=== PATIENT | female | born 1990 | race Caucasian/White ===

== ENCOUNTER 2019-02-10 12:35 | Outpatient (RCR) | payer MEDICAID ==
[2019-02-08 13:30] VITALS: BP 110/69
[~2019-02-10] VITALS: Ht 165 cm; Wt 72.7 kg
[~2019-02-10 12:35] MED LIST: IRON SUCROSE 200 MG/10 ML (VENOFER) VIAL IV ONE; IRON SUCROSE 200 MG/10 ML (VENOFER) VIAL IV SCH; PREN1TAB39 PO
[2019-02-10 13:57] VITALS: BP 108/71
== END 2019-02-10 13:35 | disposition home or self-care (01) ==
LOC: SDC 12:35
PROVIDERS: ATTEND Family Medicine
DX: D50.9 Iron deficiency anemia, unspecified (principal)
CPT/HCPCS: 96365

== ENCOUNTER 2019-02-21 11:06 | Outpatient (RCR) | payer MEDICAID ==
[2019-02-17] MEDS: IRON SUCROSE 200 MG/10 ML (VENOFER) VIAL IV SCH (13:00)
[2019-02-17 13:03] VITALS: BP 109/65
[~2019-02-21] VITALS: Ht 170.1 cm; Wt 72.7 kg
[~2019-02-21 11:06] MED LIST changes: -IRON SUCROSE 200 MG/10 ML (VENOFER) VIAL IV ONE; -IRON SUCROSE 200 MG/10 ML (VENOFER) VIAL IV SCH
[2019-02-21] MEDS: IRON SUCROSE 200 MG/10 ML (VENOFER) VIAL IV SCH (11:12)
[2019-02-21 11:45] VITALS: BP 108/66
== END 2019-02-21 11:45 | disposition home or self-care (01) ==
LOC: SDC 11:06
PROVIDERS: ATTEND Family Medicine
DX: D50.9 Iron deficiency anemia, unspecified (principal)
CPT/HCPCS: 96365

== ENCOUNTER 2019-03-04 22:15 | Outpatient (CLI) | payer MEDICAID ==
[~2019-03-04] VITALS: Ht 165.1 cm; Wt 76.9 kg
--- NOTE | 2019-03-04 22:22 | NUR ---
MARTY BANUELOS presented to unit via ambulatory from ED, accompanied by family, with c/o CONTRACTIONS. MARTY BANUELOS weighed, gowned, voided, and to bed. EFHM and TOCO applied, VS taken. MARTY BANUELOS oriented to bed controls, call light, TV, heat, and A/C controls.
[2019-03-04 22:30] VITALS: BP 120/66
[2019-03-04 23:05] VITALS: BP 106/59
--- NOTE | 2019-03-04 23:14 | NUR ---
Patient ambulating off of unit to private vehicle at this time.
--- NOTE | 2019-03-07 09:34 | Physician Query-Final Dx ---
Clinic Account Progress/Dx Physician Query: Please give diagnosis Please include # weeks gestation Date of Service Mar 04, 2019 at 22:15 RADHA PRITCHARD Mar 07, 2019 09:34
== END 2019-03-04 23:16 | disposition home or self-care (01) ==
LOC: WSo 22:15 → LDRP 22:15 → WSo 23:16
PROVIDERS: ATTEND Family Medicine
DX: O62.9 Abnormality of forces of labor, unspecified (principal); Z3A.37 37 weeks gestation of pregnancy
CPT/HCPCS: 99213

== ENCOUNTER 2019-03-17 19:04 | Inpatient (IN) | payer MEDICAID ==
[~2019-03-17] VITALS: Ht 167.7 cm; Wt 77.0 kg
--- NOTE | 2019-03-17 18:58 | NUR ---
MARTY BANUELOS presented to unit via ambulatory from home, accompanied by gracy, for INDUCTION. MARTY BANUELOS weighed, gowned, voided, and to bed. EFHM and TOCO applied, VS taken. MARTY BANUELOS oriented to bed controls, call light, TV, heat, and A/C controls.
[2019-03-17] MEDS ORDERED: D5 LR IV SOLUTION 1,000 ML IV SCH (19:10)
[2019-03-17] MEDS ORDERED: LACTATED RINGERS 1,000 ML IV SCH (19:10)
[2019-03-17] MEDS ORDERED: MINERAL OIL CONCENTRATE 99.9% 15 ML UDC TOP PRN (19:15)
[2019-03-17] MEDS ORDERED: MISOPROSTOL 100 MCG (CYTOTEC) TAB PO ONE (19:15)
[2019-03-17] MEDS ORDERED: TERBUTALINE INJ 1 MG/ML (BRETHINE) AMP SC PRN (19:15)
[2019-03-17 19:20] VITALS: BP 116/66
[2019-03-17 20:00] LABS: BASOPHILS % (AUTO) 0 % (0-10); EOSINOPHILS # (AUTO) 0.1 10^3/uL (0.0-0.3); EOSINOPHILS % (AUTO) 1 % (0-10); HEMATOCRIT 33 % (35-52); HEMOGLOBIN 10.6 G/DL (11.5-16.0); LYMPHOCYTES # (AUTO) 1.6 X 10^3 (1.0-4.0); LYMPHOCYTES % (AUTO) 18 % (12-44); MEAN CORPUSCULAR HEMOGLOBIN 30 PG (25-34); MEAN CORPUSCULAR HGB CONC 32 G/DL (32-36); MEAN CORPUSCULAR VOLUME 93 FL (80-99); MEAN PLATELET VOLUME 9.9 FL (7.4-10.4); MONOCYTES # (AUTO) 0.6 X 10^3 (0.0-1.0); MONOCYTES % (AUTO) 7 % (0-12); NEUTROPHILS # (AUTO) 6.6 X 10^3 (1.8-7.8); NEUTROPHILS % (AUTO) 75 % (42-75); PLATELET COUNT 235 10^3/uL (130-400); RED CELL DISTRIBUTION WIDTH 18.3 % (10.0-14.5); WHITE BLOOD COUNT 8.8 10^3/uL (4.3-11.0)
[2019-03-17] MEDS ORDERED: ZOLPIDEM 5 MG (AMBIEN) TAB PO PRN (20:30)
[2019-03-17] MEDS ORDERED: FERR159T2 PO (20:41)
[2019-03-17 22:00] VITALS: BP 110/58
[2019-03-17] MEDS ORDERED: CATHETER FLUSH 10 ML SYR IV SCH (22:00)
[2019-03-17 23:00] VITALS: BP 103/56
[2019-03-17] MEDS ORDERED: MISOPROSTOL 100 MCG (CYTOTEC) TAB PO SCH (23:15)
[2019-03-18] VITALS (52 sets, daily range): BP systolic 94–124; BP diastolic 50–94
--- NOTE | 2019-03-18 01:33 | NUR ---
This RN called Dr Carrizales to notify of patient contraction pattern, time of next cytotec dose due, latest SVE. New orders received.
[2019-03-18] MEDS ORDERED: BUTORPHANOL INJ 2 MG/ML (STADOL) VIAL IV ONE (02:45)
[2019-03-18] MEDS ORDERED: SUFENTA 0.6MCG/ML BUPIVA 0.125 100 ML ONE (03:19)
--- NOTE | 2019-03-18 03:50 | NUR ---
This RN called Abimbola Tariq CRNA to notify of patient request for epidural.
[2019-03-18] MEDS ORDERED: BUPIVACAINE 0.25% 30 ML (SENSORCAINE) VIAL ONE (04:03)
[2019-03-18] MEDS ORDERED: fentaNYL INJECTION 100 MCG/2 ML AMP ONE (04:03)
[2019-03-18] MEDS ORDERED: LACTATED RINGERS 1,000 ML IV ONE (04:42)
[2019-03-18] MEDS ORDERED: NALOXONE 0.4 MG/ML 1 ML (NARCAN) VIAL IV PRN (04:45)
[2019-03-18] MEDS ORDERED: EPIDURAL (SUFENTA 0.6MCG/ML BUPIVA 0.125%) 100 ML BAG EPI SCH (04:45)
[2019-03-18] MEDS ORDERED: CATHETER FLUSH 10 ML SYR IV PRN (04:45)
[2019-03-18] MEDS ORDERED: OXYTOCIN PRE-MIX DRIP 500 ML IV SCH ×2 (09:06→11:01)
--- NOTE | 2019-03-18 09:33 | Labor Progress Note ---
Labor Progress Note Labor Progress Note Date Seen by Provider: Mar 18, 2019 Time Seen by Provider: 09:15 Subjective: Pt denies complaints. Objective: Cervical exam: /-3 Consistency: Soft Position: Anterior Presentation: Vertex heart tones: 120 beats per minute, moderate variability, no decels Tocometer: 3 ctx/10 minutes Assessment/Plan: Kelton Gregg is a 28 /Para 2/1 ,Gestational Age 39w6d here for IOL. CEFM/TOCO AROM done with clear fluid and bloody show, start pitocin Anesthesia: Epidural Anticipate vaginal delivery. Vitals - Labs Vital Signs - I&O Vital Signs Date Time Temp Pulse Resp B/P (MAP) Pulse Ox O2 Delivery O2 Flow Rate FiO2 03/18/19 07:45 70 18 104/62 (76) 97 Room Air 03/18/19 07:30 68 18 103/60 (74) 98 Room Air 03/18/19 07:15 36.6 68 18 106/57 (73) 98 Room Air 03/18/19 07:00 97 18 99/54 (69) 96 Room Air 03/18/19 06:45 95 18 99/54 (69) 96 Room Air 03/18/19 06:30 65 18 102/56 (71) 97 Room Air 03/18/19 06:15 64 18 105/59 (74) 97 Room Air 03/18/19 06:00 63 18 95/51 (66) 96 Room Air 03/18/19 05:45 98 18 99/57 (71) 96 Room Air 03/18/19 05:30 66 18 95 Room Air 03/18/19 05:25 65 18 105/57 (73) 97 Room Air 03/18/19 05:20 67 18 104/58 (73) 97 Room Air 03/18/19 05:15 65 18 105/56 (72) 96 Room Air 03/18/19 05:10 67 18 106/51 (69) 96 Room Air 03/18/19 05:00 70 18 108/67 (81) 98 Room Air 03/18/19 04:55 67 18 113/66 (82) 98 Room Air 03/18/19 04:50 74 18 110/68 (82) 98 Room Air 03/18/19 04:45 96 18 114/64 (81) 97 Room Air 03/18/19 04:42 73 18 114/57 (76) Room Air 03/18/19 04:39 92 18 112/58 (76) 98 Room Air 03/18/19 04:33 36.4 78 18 113/58 (76) 97 Room Air 03/18/19 04:30 69 18 113/69 (84) 99 Room Air 03/18/19 04:23 83 18 112/76 (88) 100 Room Air 03/18/19 04:19 82 18 119/80 (93) 100 Room Air 03/18/19 04:15 18 Room Air 03/18/19 04:13 74 18 124/56 (78) 99 Room Air 03/18/19 04:05 64 18 106/60 (75) Room Air 03/18/19 04:00 71 18 109/60 (76) Room Air 03/18/19 03:00 64 18 115/56 (75) Room Air 03/18/19 02:00 66 18 94/55 (68) Room Air 03/18/19 01:00 36.6 73 18 104/66 (79) Room Air 03/18/19 00:00 65 18 99/50 (66) Room Air 03/17/19 23:00 68 18 103/56 (72) Room Air 03/17/19 22:00 75 18 110/58 (75) Room Air 03/17/19 19:20 36.4 81 18 97 Room Air I & O 03/18/19 07:00 Intake Total 1000 ml Balance 1000 ml Labs Laboratory Tests 03/17/19 19:35: White Blood Count 8.8, Red Blood Count 3.58L, Hemoglobin 10.6L, Hematocrit 33L, Mean Corpuscular Volume 93, Mean Corpuscular Hemoglobin 30, Mean Corpuscular Hemoglobin Concent 32, Red Cell Distribution Width 18.3H, Platelet Count 235, Mean Platelet Volume 9.9, Neutrophils (%) (Auto) 75, Lymphocytes (%) (Auto) 18, Monocytes (%) (Auto) 7, Eosinophils (%) (Auto) 1, Basophils (%) (Auto) 0, Neutrophils # (Auto) 6.6, Lymphocytes # (Auto) 1.6, Monocytes # (Auto) 0.6, Eosinophils # (Auto) 0.1, Basophils # (Auto) 0.0 VIVEK GRAY MD Mar 18, 2019 09:33
--- NOTE | 2019-03-18 11:00 | OB Labor & Delivery Record ---
Vag Delivery Note Vag Delivery Note Date of Delivery: 03/18/19 Preoperative Diagnosis: Kelton Gregg is a (28 /Para 2 /1 ,Gestational Age (wks)39.6 here for elective IOL. Postoperative Diagnosis: Same Surgeon: YOUSIF BENJAMIN Poker Dealer: None Anesthesia: Epidural Delivery Type: @1032 Findings: Viable female infant, apgars 8/9, weight 8#6, 3790 grams Lacerations: 2nd degree Intact placenta with 3 vessel cord. No nuchal cord, body cord or shoulder dystocia Estimated Blood Loss: 200 ml Complications: None Condition: Stable Description of Procedure: The patient is a 28 year old female who presented for IOL at term. She was admitted and informed consent was obtained. Her labor course was unremarkable. She progressed to complete dilatation and began to push. She was then set up for delivery. The 's head was delivered atraumatically in the ЕЛЕНА position. The shoulders and remainder of the 's body were then delivered without difficulty. Upon delivery, the head was held below the level of the perineum and the mouth and nares were bulb suctioned. The cord was doubly clamped and cut by FOB and the infant was placed on maternal abdomen and attended to by pediatric staff. An intact placenta with 3-vessel cord delivered via Bishop and there was found to be minimal bleeding.~ Vigorous fundal massage was performed and the fundus was found to be firm. IV oxytocin was given. Examination of the vagina and perineum revealed a 2nd laceration repaired in the usual fashion with 3-0 Reped suture. Following the repair, sponge, instrument and needle counts were correct. Mom and baby were both in stable condition in the labor suite. Vitals - Labs Vital Signs - I&O Vital Signs Date Time Temp Pulse Resp B/P (MAP) Pulse Ox O2 Delivery O2 Flow Rate FiO2 03/18/19 08:00 66 18 101/56 (71) 97 Room Air 03/18/19 07:45 70 18 104/62 (76) 97 Room Air 03/18/19 07:30 68 18 103/60 (74) 98 Room Air 03/18/19 07:15 36.6 68 18 106/57 (73) 98 Room Air 03/18/19 07:00 97 18 99/54 (69) 96 Room Air 03/18/19 06:45 95 18 99/54 (69) 96 Room Air 03/18/19 06:30 65 18 102/56 (71) 97 Room Air 03/18/19 06:15 64 18 105/59 (74) 97 Room Air 03/18/19 06:00 63 18 95/51 (66) 96 Room Air 03/18/19 05:45 98 18 99/57 (71) 96 Room Air 03/18/19 05:30 66 18 95 Room Air 03/18/19 05:25 65 18 105/57 (73) 97 Room Air 03/18/19 05:20 67 18 104/58 (73) 97 Room Air 03/18/19 05:15 65 18 105/56 (72) 96 Room Air 03/18/19 05:10 67 18 106/51 (69) 96 Room Air 03/18/19 05:00 70 18 108/67 (81) 98 Room Air 03/18/19 04:55 67 18 113/66 (82) 98 Room Air 03/18/19 04:50 74 18 110/68 (82) 98 Room Air 03/18/19 04:45 96 18 114/64 (81) 97 Room Air 03/18/19 04:42 73 18 114/57 (76) Room Air 03/18/19 04:39 92 18 112/58 (76) 98 Room Air 03/18/19 04:33 36.4 78 18 113/58 (76) 97 Room Air 03/18/19 04:30 69 18 113/69 (84) 99 Room Air 03/18/19 04:23 83 18 112/76 (88) 100 Room Air 03/18/19 04:19 82 18 119/80 (93) 100 Room Air 03/18/19 04:15 18 Room Air 03/18/19 04:13 74 18 124/56 (78) 99 Room Air 03/18/19 04:05 64 18 106/60 (75) Room Air 03/18/19 04:00 71 18 109/60 (76) Room Air 03/18/19 03:00 64 18 115/56 (75) Room Air 03/18/19 02:00 66 18 94/55 (68) Room Air 03/18/19 01:00 36.6 73 18 104/66 (79) Room Air 03/18/19 00:00 65 18 99/50 (66) Room Air 03/17/19 23:00 68 18 103/56 (72) Room Air 03/17/19 22:00 75 18 110/58 (75) Room Air 03/17/19 19:20 36.4 81 18 97 Room Air I & O 03/18/19 07:00 Intake Total 1000 ml Balance 1000 ml Labs Laboratory Tests 03/17/19 19:35: White Blood Count 8.8, Red Blood Count 3.58L, Hemoglobin 10.6L, Hematocrit 33L, Mean Corpuscular Volume 93, Mean Corpuscular Hemoglobin 30, Mean Corpuscular Hem oglobin Concent 32, Red Cell Distribution Width 18.3H, Platelet Count 235, Mean Platelet Volume 9.9, Neutrophils (%) (Auto) 75, Lymphocytes (%) (Auto) 18, Monocytes (%) (Auto) 7, Eosinophils (%) (Auto) 1, Basophils (%) (Auto) 0, Neutro phils # (Auto) 6.6, Lymphocytes # (Auto) 1.6, Monocytes # (Auto) 0.6, Eosinophils # (Auto) 0.1, Basophils # (Auto) 0.0 YOUSIF BENJAMIN MD Mar 18, 2019 11:00
--- NOTE | 2019-03-18 11:00 | History & Physical-OB ---
OB - Chief Complaint & HPI Date/Time Date of Admission: Date of Admission: Mar 17, 2019 at 19:04 Date seen by a Provider: Mar 18, 2019 Time Seen by a Provider: 09:55 Chief Complaint/History OB-Reason for Admission/Chief: Induction of Labor Hx : 2 Hx Para: 1 Expected Date of Delivery: Mar 18, 2019 Gestational Age in Weeks: 39 Gestational Age in Days: 6 Indication for induction: post dates History of Labs A+, Ab neg, Rub Imm, RPR/HepB/HIV NR, Normal 1 hr GTT, GBS Neg Allergies and Home Medications Allergies Coded Allergies: No Known Drug Allergies (Unverified , 10/30/08) Home Medications Ferrous Sulfate, Dried 159 Mg Tablet.er, 28 MG PO DAILY, (Reported) Ibuprofen 600 Mg Tablet, 600 MG PO Q6HR PRN for PAIN-MODERATE (5-7) Prescribed by: VIVEK GRAY on 03/19/19 0726 Vits W-Ca,Fe,Fa(<1MG) 1 Each Tablet, 1 EACH PO DAILY, (Reported) Patient Home Medication List Home Medication List Reviewed: Yes OB - History Hx of Present Care: Yes Ultrasounds: Normal mid trimester US Obstetrical Complications: None Medical Complications: Other (Severe Anemia during requiring IV iron influsion ) Information Induced Hypertension: No Maternal Gestational Diabetes: No Hemorrhage: No Obstetrical History Hx : 2 Hx Para: 1 Hx # Term Pregnancies: 1 Number of Living Children: 1 Hx Termination: No Hx Multiple Gestation: No Hx Stillbirth: No Hx Complication: No Hx Induced Hypertens: No Hx Maternal Gestational Diabet: No Delivery History Hx Dystocia: No Hx Forceps Assisted Delivery: No Hx Vacuum Extraction Assisted: No Hx Placenta Abnormality: No Hx Distress: No Hx Large For Gestational Age I: No Hx Small for Gestational Age I: No Hx Section: No Hx Vaginal Delivery Post C-Sec: No Hx Blood Disorders: No Adverse Rxn to Tranfusion: No Patient Past Medical History Severe Anemia in pregnacy Social History/Family History HIV/AIDS: No Recent Infectious Disease Expo: No Sexually Transmitted Disease: No Alcohol Use: Denies Use Recreational Drug Use: No Smoking Cessation: Never smoker 2nd Hand Smoke Exposure: No Immunizations Tetanus Booster (TDap): Less than 5yrs Date of Influenza Vaccine: Jan 08, 2019 Rubella: immune RPR/VDRL: Negative GBS Status: Negative HBsAG: Negative OB - Admission Exam Physical Exam Vitals: Vital Signs 03/18/19 03/18/19 07:15 08:00 Temp 36.6 Pulse 66 Resp 18 B/P (MAP) 101/56 (71) Pulse Ox 97 O2 Delivery Room Air HEENT: NCAT Heart: Rhythm Normal Lungs: Clear Abdomen: Gravid Cervical Dilatation: 10cm Effacement: 100% Station: 0 Membranes: Ruptured Amniotic Fluid: Clear Heart Rate: 130's Accelerations: Accelerations Present Decelerations: Early Decelerations Contractions on Admission: < 5 Minutes Apart Intensity: Firm Cespedes Scoring Tool (Modified) Dilation (cm): 3-4cm (2) Effacement (%): 51-79% (2) Descent/Station: -1,0 (2) Cervix Consistency: Medium(1) Cervix Position: Middle/Mid-Position (1) Cespedes Score: 8 Labs Laboratory Tests Test 03/17/19 19:35 Range/Units White Blood Count 8.8 4.3-11.0 10^3/uL Red Blood Count 3.58 L 4.35-5.85 10^6/uL Hemoglobin 10.6 L 11.5-16.0 G/DL Hematocrit 33 L 35-52 % Mean Corpuscular Volume 93 80-99 FL Mean Corpuscular Hemoglobin 30 25-34 PG Mean Corpuscular Hemoglobin Concent 32 32-36 G/DL Red Cell Distribution Width 18.3 H 10.0-14.5 % Platelet Count 235 130-400 10^3/uL Mean Platelet Volume 9.9 7.4-10.4 FL Neutrophils (%) (Auto) 75 42-75 % Lymphocytes (%) (Auto) 18 12-44 % Monocytes (%) (Auto) 7 0-12 % Eosinophils (%) (Auto) 1 0-10 % Basophils (%) (Auto) 0 0-10 % Neutrophils # (Auto) 6.6 1.8-7.8 X 10^3 Lymphocytes # (Auto) 1.6 1.0-4.0 X 10^3 Monocytes # (Auto) 0.6 0.0-1.0 X 10^3 Eosinophils # (Auto) 0.1 0.0-0.3 10^3/uL Basophils # (Auto) 0.0 0.0-0.1 10^3/uL OB - Assessment/Plan/Diagnosis Assessment Assessment: induction of labor Admission Dx Labor Admission Status: Inpatient Order (span 2 midnights) Reason for Inpatient Admission: Term with expected vaginal delivery Plan Plan: Induction Induction Method: per Misoprostol Protocol Other Plan 28 yo @ 40.0 wga here for elective IOL Plan - Revieved cytotec last night x1 dose - AROM clear - Started on Pitocin protocol - FHT: Good variability, + Accels - GBS neg - Expect Vaginal delivery YOUSIF BENJAMIN MD Mar 18, 2019 11:00
[2019-03-18] MEDS ORDERED: MEASLES,MUMPS,RUBELLA 1 EA INJ SQ ONE (11:15)
[2019-03-18] MEDS ORDERED: TETANUS,DIPTH,PERTUSS P/F (BOOSTRIX) 0.5 ML VIAL IM ONE (11:15)
[2019-03-18] MEDS ORDERED: BENZOCAINE/MENTHOL (DERMOPLAST) 60 ML CAN TP PRN (11:15)
[2019-03-18] MEDS ORDERED: WITCH HAZEL(TUCKS) 40 EA JAR TOP PRN (11:15)
[2019-03-18] MEDS ORDERED: CATHETER FLUSH 10 ML SYR IV SCH (14:00)
[2019-03-18] MEDS: IBUPROFEN 600 MG (MOTRIN) TAB PO SCH ×2 (14:30→20:22)
--- NOTE | 2019-03-18 14:30 | NUR ---
pt assisted up to BR. unable to void. rochelle-care offered. v-pad in place scheduled Motrin p.o. given.
--- NOTE | 2019-03-18 14:40 | NUR ---
pt transferred to room 311 via w/c with this RN, and @ side. pt stable with no sx's of distress noted.
--- NOTE | 2019-03-18 18:00 | NUR ---
family in room. no c/os voiced.
[2019-03-18] MEDS ORDERED: ACETAMINOPHEN 500 MG TAB (TYLENOL) PO PRN (18:15)
--- NOTE | 2019-03-18 19:26 | NUR ---
report given to next shift
[2019-03-18] MEDS: DOCUSATE SODIUM 100 MG (COLACE) CAP PO SCH (20:21)
[2019-03-19 00:30] VITALS: BP 97/59
[2019-03-19] MEDS: IBUPROFEN 600 MG (MOTRIN) TAB PO SCH ×3 (02:43→14:44)
[2019-03-19 04:05] VITALS: BP 115/68
[2019-03-19 06:43] LABS: BASOPHILS % (AUTO) 0 % (0-10); EOSINOPHILS # (AUTO) 0.1 10^3/uL (0.0-0.3); EOSINOPHILS % (AUTO) 1 % (0-10); HEMATOCRIT 27 % (35-52); HEMOGLOBIN 8.7 G/DL (11.5-16.0); LYMPHOCYTES # (AUTO) 1.9 X 10^3 (1.0-4.0); LYMPHOCYTES % (AUTO) 15 % (12-44); MEAN CORPUSCULAR HEMOGLOBIN 30 PG (25-34); MEAN CORPUSCULAR HGB CONC 32 G/DL (32-36); MEAN CORPUSCULAR VOLUME 94 FL (80-99); MEAN PLATELET VOLUME 9.7 FL (7.4-10.4); MONOCYTES # (AUTO) 1.1 X 10^3 (0.0-1.0); MONOCYTES % (AUTO) 9 % (0-12); NEUTROPHILS # (AUTO) 9.2 X 10^3 (1.8-7.8); NEUTROPHILS % (AUTO) 75 % (42-75); PLATELET COUNT 199 10^3/uL (130-400); RED CELL DISTRIBUTION WIDTH 18.6 % (10.0-14.5); WHITE BLOOD COUNT 12.2 10^3/uL (4.3-11.0)
[2019-03-19] MEDS ORDERED: PRENATAL VITAMIN 1 EA TAB PO SCH (07:00)
[2019-03-19] MEDS ORDERED: IBUP-844 PO (07:26)
--- NOTE | 2019-03-19 07:28 | Discharge Summary ---
Discharge Inst-[facility] Depart Medications New Medications: Ibuprofen (Ibu) 600 Mg Tablet 600 MG PO Q6HR PRN for PAIN-MODERATE (5-7), #60 TAB Continued Medications: Ferrous Sulfate, Dried (Iron) 159 Mg Tablet.er 28 MG PO DAILY, TAB Vits W-Ca,Fe,Fa(<1MG) () 1 Each Tablet 1 EACH PO DAILY Follow Up/Instructions Goal/Follow Up: Follow up with Dr. Carrizales in 6 weeks for visit. Activity Activity: Activity as Tolerated (avoid strenuous activity x 2 weeks) Driving Instructions: You May Drive Nothing Inside Vagina: No Douching, No [place], No Tampons Diet Discharge Diet: Regular Diet Symptoms to Report to : Bleeding Excessive, Fever Over 101 Degrees F, Pain/Pressure in Chest, Vaginal Bleeding Increase, Vaginal Discharge Foul, Dizziness/Fainting, Shortness of Breath For Any Problems or Questions: Contact Your Physician Copies To 1: YOUSIF CARRIZALES MD, BETHANY N MD Mar 19, 2019 07:28
[2019-03-19] MEDS ORDERED: FERROUS SULF 325 MG (IRON) TAB PO SCH ×2 (07:31→08:00)
[2019-03-19] MEDS: DOCUSATE SODIUM 100 MG (COLACE) CAP PO SCH (07:57)
[2019-03-19 08:05] VITALS: BP 104/64
[2019-03-19 11:51] VITALS: BP 104/64
--- NOTE | 2019-03-19 12:30 | NUR ---
home instructions given with pt verbalizing understanding. Awaiting status of to see if able to discharge. 1715 Mom and infant discharged. Pt ambulated to exit - accompanied by , daughter and this RN.
[2019-03-19 14:40] VITALS: BP 111/68
--- NOTE | 2019-03-19 14:47 | Discharge Summary ---
Discharge Summary Hospital Course Hospital Course Date of Admission: Mar 17, 2019 at 19:04 Admission Diagnosis : Family Physician/Provider: Date of Discharge: 03/19/19 Discharge Diagnosis: s/p spontaneous vaginal delivery asymptomatic anemia Hospital Course: 28 yo G2 now P2 admitted for induction of labor at 39w6d, had unremarkable labor and delivery, routine course. Labs and Pending Lab Test: Laboratory Tests 03/19/19 06:03: White Blood Count 12.2H, Red Blood Count 2.87L, Hemoglobin 8.7L, Hematocrit 27L, Mean Corpuscular Volume 94, Mean Corpuscular Hemoglobin 30, Mean Corpuscular Hemoglobin Concent 32, Red Cell Distribution Width 18.6H, Platelet Count 199, Mean Platelet Volume 9.7, Neutrophils (%) (Auto) 75, Lymphocytes (%) (Auto) 15, Monocytes (%) (Auto) 9, Eosinophils (%) (Auto) 1, Basophils (%) (Auto) 0, Neutrophils # (Auto) 9.2H, Lymphocytes # (Auto) 1.9, Monocytes # (Auto) 1.1H, Eosinophils # (Auto) 0.1, Basophils # (Auto) 0.0 Home Meds Active Ibu (Ibuprofen) 600 Mg Tablet 600 Mg PO Q6HR PRN Reported Iron (Ferrous Sulfate, Dried) 159 Mg Tablet.er 28 Mg PO DAILY ( Vits W-Ca,Fe,Fa(<1MG)) 1 Each Tablet 1 Each PO DAILY Assessment/Pt DC Instructions Follow up with Dr. Carrizales in 6 weeks for visit. Discharge Physical Examination Allergies: Coded Allergies: No Known Drug Allergies (Unverified , 10/30/08) General Appearance: No Apparent Distress, WD/WN Respiratory: Lungs Clear, Normal Breath Sounds Cardiovascular: Regular Rate, Rhythm, No Murmur Neurologic/Psychiatric: Alert, Normal Mood/Affect Clinical Quality Measures DVT/VTE Risk/Contraindication: Risk Factor Score Per Nursin RFS Level Per Nursing on Admit: 1=Low/No VTE PPX VIVEK GRAY MD Mar 19, 2019 14:47
== END 2019-03-19 17:15 | disposition home or self-care (01) | DRG 807 ==
LOC: LDRP 19:04
PROVIDERS: ADMIT Family Medicine; ATTEND Family Medicine
PROC: 3E0DXGC Introduction of Other Therapeutic Substance into Mouth and Pharynx, External Approach (ICD-10-PCS; 2019-03-17)
PROC: 10E0XZZ Delivery of Products of Conception, External Approach (ICD-10-PCS; principal; 2019-03-18)
PROC: 0KQM0ZZ Repair Perineum Muscle, Open Approach (ICD-10-PCS; 2019-03-18)
DX: O70.1 Second degree perineal laceration during delivery (principal); O99.03 Anemia complicating the puerperium; D64.9 Anemia, unspecified; Z3A.39 39 weeks gestation of pregnancy; Z37.0 Single live birth
CPT/HCPCS: 36415; 85025; 86850; 86900; 86901